=== PATIENT | male | born 1960 ===

== ENCOUNTER 2023-09-21 09:26 | Inpatient (IN) | payer MEDICARE ==
[~2023-09-21 09:26] MED LIST: Sodium Chloride 0.9% 10 ML Syringe FLUSH PRN
[2023-09-21] MEDS ORDERED: Propofol 200 MG/20 ML SDV ONE ×2 (09:33→09:34)
[2023-09-21] MEDS ORDERED: Ketorolac 30 MG/ML SDV ONE (09:33)
[2023-09-21] MEDS ORDERED: Dexamethasone 4 MG/ML 5 ML MDV ONE (09:33)
[2023-09-21] MEDS ORDERED: dexmedeTOMIDine HCl 200 MCG/2 ML SDV ONE (09:33)
[2023-09-21] MEDS ORDERED: Succinylcholine 200 MG/10 ML MDV ONE (09:33)
[2023-09-21] MEDS ORDERED: Ondansetron 4 MG/2 ML SDV ONE (09:33)
[2023-09-21] MEDS ORDERED: Metoclopramide 10 MG/2 ML SDV ONE (09:33)
[2023-09-21] MEDS ORDERED: Rocuronium 50 MG/5 ML Vial ONE ×3 (09:33→13:58)
[2023-09-21] MEDS ORDERED: Lidocaine 2% 5 ML SDV ONE (09:33)
[2023-09-21] MEDS ORDERED: ceFAZolin 2 GM Vial ONE (09:34)
[2023-09-21] MEDS ORDERED: fentaNYL 100 MCG/2 ML SDV ONE (09:39)
[2023-09-21] MEDS ORDERED: Acetaminophen 325 MG Tab PO PRN (09:51)
[2023-09-21] MEDS ORDERED: Ketorolac 15 MG/ML SDV IVPUSH PRN (09:52)
[2023-09-21] MEDS: Lactated Ringers 1,000 ML IV SCH (10:05)
[2023-09-21] MEDS ORDERED: Heparin Sodium 5,000 Units/ML Vial SUBCUT SCH (10:30)
[2023-09-21] MEDS ORDERED: ePHEDrine 50 MG/ML SDV ONE (11:00)
[2023-09-21] MEDS ORDERED: Lactated Ringers 1,000 ML ONE (11:08)
[2023-09-21] MEDS ORDERED: Phenylephrine 1% 10 MG/ML SDV ONE (11:15)
[2023-09-21] MEDS: Lidocaine 2% 20 ML MDV ONE (11:28)
[2023-09-21] MEDS: Ropivacaine 0.5% 5 MG/ML 30 ML SDV ONE (11:29)
[2023-09-21] MEDS ORDERED: HYDROmorphone 0.5 MG/0.5 ML Syringe ONE (13:33)
[2023-09-21] MEDS ORDERED: Ondansetron 4 MG/2 ML SDV IVPUSH PRN ×2 (13:35→15:52)
[2023-09-21] MEDS ORDERED: Neostigmine Methylsulfate 10 MG/10 ML MDV ONE (13:42)
[2023-09-21] MEDS: fentaNYL 100 MCG/2 ML SDV IVPUSH PRN (15:41)
[2023-09-21] MEDS: HYDROmorphone 0.5 MG/0.5 ML Syringe IVPUSH PRN ×2 (15:55→23:48)
[2023-09-21] MEDS: Sodium Chloride 0.9% 1,000 ML IV SCH (16:19)
[2023-09-21] MEDS: ceFAZolin 2 GM in Sodium Chloride 0.9% 50 ML IV SCH (16:19)
[2023-09-21] MEDS: Sodium Chloride 0.9% 10 ML Syringe FLUSH SCH (16:35)
[2023-09-21] MEDS: Clindamycin Phosphate in D5W 300 MG in Premix Bag 1 BAG IV SCH ×2 (19:35→23:42)
[2023-09-21] MEDS: Heparin Sodium 5,000 Units/ML Vial SUBCUT SCH (20:44)
[2023-09-21] MEDS: Ketorolac 30 MG/ML SDV IVPUSH PRN (21:15)
[2023-09-22 04:59] LABS: BASOPHILS PERCENT AUTO 0.1 % (0.0-1.0); HEMATOCRIT 36.4 % (42.0-52.0); IMMATURE GRAN ABSOLUTE AUTO 0.04 K/mm3 (0.00-0.05); IMMATURE GRAN PERCENT AUTO 0.3 % (0.0-0.4); LYMPHOCYTES ABSOLUTE AUTO 1.1 K/mm3 (1.0-4.8); LYMPHOCYTES PERCENT AUTO 7.9 % (24.0-44.0); MEAN CORPUSCULAR HEMOGLOBIN 31.7 pg (28.0-32.0); MEAN CORPUSCULAR HGB CONC 33.2 g/dl (32.0-36.0); MEAN CORPUSCULAR VOLUME 95.3 fl (83.0-99.0); MEAN PLATELET VOLUME 11.2 fl (9.4-12.4); MONOCYTES ABSOLUTE AUTO 0.8 K/mm3 (0.0-0.8); MONOCYTES PERCENT AUTO 5.6 % (0.0-8.0); NEUTROPHILS ABSOLUTE AUTO 11.8 K/mm3 (1.8-7.7); NEUTROPHILS PERCENT AUTO 86.1 % (41.0-71.0); PLATELET COUNT,PLT 216 K/mm3 (150-400); RED BLOOD CELL COUNT 3.82 M/mm3 (4.52-5.90); WHITE BLOOD CELL COUNT,WBC 13.73 K/mm3 (3.9-11.3)
[2023-09-22 05:05] LABS: HEMOGLOBIN 12.1 gm/dl (14.0-18.0)
[2023-09-22 05:10] LABS: ANION GAP 17.2 (5-15); BUN/CREATININE RATIO 18.9 (14-18); CALCIUM 8.2 mg/dL (8.5-10.1); CREATININE 0.9 mg/dL (0.7-1.3); EST CRCL DRUG DOSING (CG) 91.8 mL/min; MAGNESIUM 1.5 mg/dL (1.8-2.4); PHOSPHORUS 3.6 mg/dL (2.6-4.7); POTASSIUM,K 4.2 mEq/L (3.5-5.1)
[2023-09-22] MEDS ORDERED: Magnesium Sulfate (4.06 MEQ/ML) 1 GM/2 ML SDV IM ONE (09:09)
[2023-09-22] MEDS: Calcium Gluconate 1 GM in Sodium Chloride 0.9% 100 ML IV ONE (09:50)
[2023-09-22] MEDS: metFORMIN 500 MG Tab PO SCH (17:06)
[2023-09-22] MEDS: Sodium Chloride 0.9% 1,000 ML IV SCH (19:13)
[2023-09-22] MEDS: Psyllium Husk Powder Sugar Free 5.85 GM Packet PO ONE (21:16)
[2023-09-23] MEDS ORDERED: Psyllium Husk Powder Sugar Free 5.85 GM Packet PO SCH ×2 (07:00→09:00)
[2023-09-23 10:37] LABS: BASOPHILS ABSOLUTE AUTO 0.1 K/mm3 (0.0-0.2); BASOPHILS PERCENT AUTO 0.4 % (0.0-1.0); EOSINOPHILS ABSOLUTE AUTO 0.2 K/mm3 (0.0-0.4); EOSINOPHILS PERCENT AUTO 1.4 % (0.0-6.0); HEMATOCRIT 35.7 % (42.0-52.0); HEMOGLOBIN 12.1 gm/dl (14.0-18.0); IMMATURE GRAN ABSOLUTE AUTO 0.04 K/mm3 (0.00-0.05); IMMATURE GRAN PERCENT AUTO 0.3 % (0.0-0.4); LYMPHOCYTES ABSOLUTE AUTO 2.2 K/mm3 (1.0-4.8); LYMPHOCYTES PERCENT AUTO 18.8 % (24.0-44.0); MEAN CORPUSCULAR HEMOGLOBIN 32.2 pg (28.0-32.0); MEAN CORPUSCULAR HGB CONC 33.9 g/dl (32.0-36.0); MEAN CORPUSCULAR VOLUME 94.9 fl (83.0-99.0); MEAN PLATELET VOLUME 10.9 fl (9.4-12.4); MONOCYTES ABSOLUTE AUTO 0.7 K/mm3 (0.0-0.8); NEUTROPHILS ABSOLUTE AUTO 8.7 K/mm3 (1.8-7.7); NEUTROPHILS PERCENT AUTO 73.1 % (41.0-71.0); PLATELET COUNT,PLT 227 K/mm3 (150-400); RED BLOOD CELL COUNT 3.76 M/mm3 (4.52-5.90); WHITE BLOOD CELL COUNT,WBC 11.94 K/mm3 (3.9-11.3)
[2023-09-23 10:50] LABS: POTASSIUM,K 3.6 mEq/L (3.5-5.1)
[2023-09-23 10:51] LABS: ANION GAP 16.6 (5-15); BUN/CREATININE RATIO 18.8 (14-18); CREATININE 0.8 mg/dL (0.7-1.3); EST CRCL DRUG DOSING (CG) 103.28 mL/min
[2023-09-23 11:16] LABS: MAGNESIUM 1.8 mg/dL (1.8-2.4); PHOSPHORUS 3.5 mg/dL (2.6-4.7)
[2023-09-23] MEDS: Psyllium Husk Powder Sugar Free 5.85 GM Packet PO SCH (11:40)
[2023-09-23] MEDS: Calcium Gluconate 1 GM in Sodium Chloride 0.9% 100 ML IV ONE ×2 (14:27)
[2023-09-23] MEDS ORDERED: Sodium Chloride 0.9% 1,000 ML IV SCH (19:45)
[2023-09-23] MEDS: Calcium Gluconate 10% 1 GM/10 ML SDV ONE (19:54)
[2023-09-23] MEDS: Sodium Chloride 0.9% 100 ML ONE (19:54)
[2023-09-23] MEDS ORDERED: Psyllium Husk Powder Sugar Free 5.85 GM Packet PO ONE (20:00)
[2023-09-24] MEDS: Acetaminophen Soln 650 MG/20.3 ML UD Cup PO PRN (20:00)
[2023-09-25 17:37] VITALS: BP 150/80; PULSE 84
== END 2023-09-25 18:00 | disposition home or self-care (01) | DRG 354 ==
LOC: JD.MS 09:26
PROVIDERS: ADMIT Family Medicine; ATTEND Family Medicine
PROC: 0WUF0JZ Supplement Abdominal Wall with Synthetic Substitute, Open Approach (ICD-10-PCS; principal; 2023-09-21 10:30)
DX: K43.9 Ventral hernia without obstruction or gangrene (principal); K56.7 Ileus, unspecified; K91.89 Other postprocedural complications and disorders of digestive system; K42.9 Umbilical hernia without obstruction or gangrene; E11.9 Type 2 diabetes mellitus without complications; I10 Essential (primary) hypertension; K21.9 Gastro-esophageal reflux disease without esophagitis; E66.9 Obesity, unspecified; M19.90 Unspecified osteoarthritis, unspecified site; Z88.0 Allergy status to penicillin; Z88.8 Allergy status to other drugs, medicaments and biological substances; Z63.5 Disruption of family by separation and divorce; Z79.82 Long term (current) use of aspirin; Z79.84 Long term (current) use of oral hypoglycemic drugs; Z90.89 Acquired absence of other organs; Z79.899 Other long term (current) drug therapy; Z87.891 Personal history of nicotine dependence; Z86.010 Personal history of colon polyps; Z86.718 Personal history of other venous thrombosis and embolism; Z96.652 Presence of left artificial knee joint
CPT/HCPCS: 00752; 36415; 80048; 82947; 83735; 84100; 85025; 94760; 94761; A9270-GY; C1781; J0330; J0612; J0690; J0736; J1100; J1170; J1644; J1885; J2001; J2371; J2405; J2704; J2710; J2765; J2795; J3010; J3475; J3490; J7030; J7120